=== PATIENT | female | born 1995 | race Caucasian/White ===

== ENCOUNTER 2017-11-28 11:50 | Emergency (ER) | payer OTHER, SELFPAY ==
--- NOTE | 2017-11-28 12:48 | EDPHYS ---
Physician Documentation [facility] Name: Joselyn Alfaro Age: 22 yrs Sex: Female : 1995 Arrival Date: 11/28/2017 Time: 11:52 Bed 11 Private MD: ED Physician Ta Galan HPI: 11/28 12:18 This 22 yrs old Female presents to ER via Ambulatory with complaints of Ear cp Pain, Sore Throat, Cough. 12:18 The patient presents with pain, that is acute. The complaints affect the right ear and cp left ear. Associated signs and symptoms: Pertinent positives: sore throat, cough, Pertinent negatives: fever, vomiting, headache. Severity of symptoms: in the emergency department the symptoms are unchanged. 12:18 Onset: The symptoms/episode began/occurred 4 day(s) ago. cp [employer]: 12:03 LMP 01/16/2017 la1 Historical: - Allergies: 12:03 No Known Allergies; la1 - PMHx: 12:03 None; la1 - PSHx: 12:03 None; la1 - Immunization history:: Adult Immunizations up to date. - Social history:: Smoking status: Patient/guardian denies using tobacco. ROS: 12:25 Constitutional: Negative for body aches, chills, fever, poor PO intake. cp 12:25 Eyes: Negative for injury, pain, redness, and discharge. cp 12:25 ENT: Positive for ear pain, sore throat, Negative for drainage from ear(s), sinus pain, difficulty swallowing, difficulty handling secretions. 12:25 Neck: Negative for pain with movement, pain at rest, stiffness, swollen nodes, tenderness. 12:25 Cardiovascular: Negative for chest pain. 12:25 Respiratory: Positive for cough, with no reported sputum, Negative for shortness of breath, wheezing. 12:25 Abdomen/GI: Negative for abdominal pain, nausea, vomiting, and diarrhea. 12:25 Skin: Negative for cellulitis, rash. 12:25 Neuro: Negative for altered mental status, headache, weakness. 12:25 All other systems are negative. Exam: 12:30 Constitutional: The patient appears in no acute distress, alert, awake, non-toxic, well cp developed, well nourished. 12:30 Head/Face: Normocephalic, atraumatic. cp 12:30 Eyes: Periorbital structures: appear normal, Conjunctiva: normal, no exudate, no injection, Sclera: no appreciated abnormality, Lids and lashes: appear normal, bilaterally. 12:30 ENT: External ear(s): are unremarkable, Ear canal(s): are normal, clear, TM's: bulging, is not appreciated, bilaterally, dullness, bilaterally, erythema, is not appreciated, bilaterally, Nose: is normal, Mouth: Lips: moist, Oral mucosa: pink and intact, moist, Posterior pharynx: Airway: no evidence of obstruction, patent, Tonsils: are normal in appearance, Uvula: midline, non-edematous, no erythema, swelling, is not appreciated, erythema, that is mild, exudate, is not appreciated, Voice: is normal. 12:30 Neck: ROM/movement: is normal, is supple, without pain, no range of motions limitations, no nuchal rigidity, Lymph nodes: no appreciated lymphadenopathy. 12:30 Chest/axilla: Inspection: normal, Palpation: is normal, no crepitus, no tenderness. 12:30 Cardiovascular: Rate: tachycardic, Rhythm: regular. 12:30 Respiratory: the patient does not display signs of respiratory distress, Respirations: normal, no use of accessory muscles, no retractions, no splinting, no tachypnea, labored breathing, is not present, Breath sounds: are clear throughout, no decreased breath sounds, no stridor, no wheezing. 12:30 Abdomen/GI: Exam negative for discomfort, distension, guarding, Inspection: gravid appearance, is noted. 12:30 Skin: cellulitis, is not appreciated, no rash present. Vital Signs: 12:03 BP 131 / 80; Pulse 109; Resp 16; Temp 98.0(TE); Pulse Ox 100% on R/A; Weight 73.48 kg; la1 Height 5 ft. 5 in. (165.10 cm); 12:03 Body Mass Index 26.96 (73.48 kg, 165.10 cm) la1 MDM: 12:10 Patient medically screened. cp 12:40 Differential diagnosis: otitis media, otitis externa, ruptured TM, cerumen impaction, cp strep throat, influenza. 12:45 Data reviewed: vital signs, nurses notes, lab test result(s). cp 12:45 Counseling: I had a detailed discussion with the patient and/or guardian regarding: the cp historical points, exam findings, and any diagnostic results supporting the discharge/admit diagnosis, lab results, to return to the emergency department if symptoms worsen or persist or if there are any questions or concerns that arise at home. Special discussion: I discussed with the patient/guardian that the patient's current presentation does not indicate dosing of antibiotics. They should follow-up with their primary care provider and return if the symptoms persist or progress. 11/28 12:13 Order name: Strep; Complete Time: 12:44 cp 11/28 12:44 Interpretation: Reviewed. cp 11/28 12:13 Order name: Influenza Screen (a \T\ B); Complete Time: 12:44 cp 11/28 12:44 Interpretation: Reviewed. cp 11/28 12:41 Order name: Throat Culture EDMS Administered Medications: No medications were administered Disposition: 18:24 Co-signature as Attending Physician, Ta Galan MD I agree with the assessment and kdr plan of care. Disposition: 11/28/17 12:47 Discharged to Home. Impression: Acute upper respiratory infection, unspecified. - Condition is Stable. - Discharge Instructions: Medicines During , Upper Respiratory Infection, Adult, Viral Infections, [id number]. - Medication Reconciliation Form, Thank You Letter, Antibiotic Education, Prescription Opioid Use form. - Follow up: Private Physician; When: 2 - 3 days; Reason: Recheck today's complaints. - Problem is new. - Symptoms are unchanged. Signatures: Dispatcher [employer] EDMS Vaibhav Ochoa RN RN Ta Galan MD MD [facility] Leo Mcdaniel RN RN la1 Harpreet Hummel PA PA cp
--- NOTE | 2017-11-28 12:48 | ER ---
Nurse's Notes [facility] Name: Joselyn Alfaro Age: 22 yrs Sex: Female : 1995 Arrival Date: 11/28/2017 Time: 11:52 Bed 11 Private MD: Diagnosis: Acute upper respiratory infection, unspecified Presentation: 11/28 12:02 Presenting complaint: Patient states: sore throat since Thursday, now with congestion la1 and cough. Pt is 37 weeks . Transition of care: patient was not received from another setting of care. Onset of symptoms was November 28, 2017. Care prior to arrival: None. 12:02 Method Of Arrival: Ambulatory la1 12:02 Acuity: MALIHA 4 la1 [employer] ARCHITECT: 12:03 LMP 01/16/2017 la1 Historical: - Allergies: 12:03 No Known Allergies; la1 - PMHx: 12:03 None; la1 - PSHx: 12:03 None; la1 - Immunization history:: Adult Immunizations up to date. - Social history:: Smoking status: Patient/guardian denies using tobacco. Screenin:53 Abuse screen: Denies threats or abuse. Denies injuries from another. Nutritional iw screening: No deficits noted. Tuberculosis screening: No symptoms or risk factors identified. Fall Risk None identified. Assessment: 12:53 General: Appears in no apparent distress. Behavior is calm, cooperative. Pain: iw Complains of pain in all over body. Neuro: Level of Consciousness is awake, alert, obeys commands, Oriented to person, place, time, situation. EENT: Throat is reddened has enlarged tonsils on right. Vital Signs: 12:03 BP 131 / 80; Pulse 109; Resp 16; Temp 98.0(TE); Pulse Ox 100% on R/A; Weight 73.48 kg; la1 Height 5 ft. 5 in. (165.10 cm); 12:03 Body Mass Index 26.96 (73.48 kg, 165.10 cm) la1 ED Course: 11:52 Patient arrived in ED. tw3 12:03 Triage completed. la1 12:04 Arm band placed on right wrist. la1 12:09 Harpreet Hummel PA is PHCP. cp 12:09 Ta Galan MD is Attending Physician. cp 12:15 Layla No, RN is Primary Nurse. iw 12:53 No provider procedures requiring assistance completed. Patient did not have IV access iw during this emergency room visit. 13:00 Patient has correct armband on for positive identification. Bed in low position. Call sg light in reach. Administered Medications: No medications were administered Outcome: 12:47 Discharge ordered by . cp 13:00 Discharged to home ambulatory, with family. sg 13:00 Condition: stable 13:00 Discharge instructions given to patient, Instructed on discharge instructions, follow up and referral plans. safety practices, Demonstrated understanding of instructions, follow-up care. 13:01 Patient left the ED. sg Signatures: Vaibhav Ochoa RN Layla Flores, RN Leo Perkins RN RN la1 Harpreet Hummel PA PA cp Wade, Tia tw3
[2017-11-28 13:05] VITALS: BP 131/80; TEMP 98; O2SAT 100
== END 2017-11-28 13:01 | disposition home or self-care (01) ==
LOC: ER 11:50
DX: J06.9 Acute upper respiratory infection, unspecified (principal)
CPT/HCPCS: 87070; 87081; 87804; 99281